=== PATIENT | male | born 2000 | race African-American/Black ===

== ENCOUNTER 2023-07-29 20:36 | Emergency (ER) | payer BC ==
[2023-07-29] MEDS ORDERED: Acetaminophen 500 MG TAB ONE (21:36)
[2023-07-29] MEDS ORDERED: Bacitracin 1 PK ONE (22:58)
[2023-07-29] MEDS ORDERED: Lidocaine 1% w/Epinephrine 1:100K 20 ML VIAL ONE (23:16)
== END 2023-07-30 00:18 | disposition home or self-care (01) ==
LOC: ERS 20:36
DX: S01.111A Laceration without foreign body of right eyelid and periocular area, initial encounter (principal); W23.1XXA Caught, crushed, jammed, or pinched between stationary objects, initial encounter
CPT/HCPCS: 12011; 99282